=== PATIENT | female | born 1965 | race Caucasian/White ===

== ENCOUNTER 2017-03-25 23:00 | Emergency (ER) | payer OTHER ==
--- NOTE | ~2017-03-25 | CR63 ---
[facility]. [facility] A Service of [facility] & [facility] RADIOLOGY TEXT RESULTS PATIENT: JONELLE YUNG LOCATION: SED : 61 UNIT #: [id number] AGE: [address]: Yonas Malone MD SEX: F ORDER DR: [id number] [address] [address] [id number] E MR#: [id number] Acc #: [id number] NAME: JONELLE YUNG. : 1965 SEX: F STUDY DATE/TIME: 03/25/2017 23:21 UNIT: SED ROOM: STUDY DESCRIPTION: CR Chest 2 View Attending Physician: Yonas Malone M.D. Ordering Physician: Yonas Malone M.D. [facility] REPORT This report is preliminary unless electronic signature is present. EXAM 2-view chest HISTORY Cough COMPARISON 09/26/2012 FINDINGS 2 views of the chest demonstrates marked hyperinflation hyperlucency compatible with underlying emphysema. No acute airspace disease or consolidation. No effusions. Heart, mediastinum unremarkable. Osseous structures unremarkable for age. IMPRESSION Moderate to severe emphysema. No acute findings. Dictated by... Don Potts M.D. THIS IS AN ELECTRONICALLY VERIFIED REPORT Don Potts M.D. at 03/27/2017 10:35 PM [facility] TD: 03/26/2017 06:07 JOB #: [id number] MEDICAL IMAGING REPORT Page 1 of 1
[~2017-03-25 23:00] MED LIST: ALBUTEROL MININEB NEB; ALBUTEROL0.83 MG/ML IH; ALBUTEROL17 GM; ALBUTEROL17 GM INH; ALEVE; AMOXICILLIN500 M1 PO; AMOXIL500 MG PO; BREO ELLIPTA 11 EACH; COMBIVENT INH14.7 GM INH; DORYX100 M1 PO; DUONEB 2.5-0.5 M3 ML NEB; ENALAPRIL/HCTZ1 TA3 PO; EXCEDRIN MIGRAI1 TA1 PO; FLEXERIL10 M1 PO; FLEXERIL10 MG PO; HYCODAN60 ML 5MG/ PO; HYDROCODON-ACE1 EAC7 PO; HYDROCODON-ACE1 EACH PO; IBUPROFEN800 MG PO; LEVAQUIN PO; LORTAB 10-5001 EACH PO; MOTRIN600 M1 PO; NEURONTIN800 MG PO; PEN-VEE K PO; PENICILLIN V P500 MG PO; PERIDEX480 ML PO; PHENERGAN W/CO120 ML PO; PREDNISONE PO; PREDNISONE50 MG PO; SYMBICORT80; ULTRAM PO; VERAPAMIL ER100 MG PO; VERAPAMIL ER240 M1 PO; VERAPAMIL HCL120 M1 PO; VERELAN120 MG PO; VIBRAMYCIN100 M1 PO; VICODIN 5/1 TAB 5/50 PO; VOLTAREN75 MG; VOLTAREN75 MG PO
== END 2017-03-26 01:09 | disposition home or self-care (01) ==
LOC: SED 23:00
DX: J44.1 Chronic obstructive pulmonary disease with (acute) exacerbation (principal); F17.200 Nicotine dependence, unspecified, uncomplicated
CPT/HCPCS: 71020; 82947; 94640; 99284